=== PATIENT | male | born 1965 | race Caucasian/White ===

== ENCOUNTER 2022-01-20 00:42 | Emergency (ER) | payer OTHER ==
[~2022-01-20] VITALS: Ht 180.3 cm; Wt 97.5 kg
--- NOTE | 2022-01-20 00:45 | NUR ---
BIBSELF C/O LEFT HAND PAIN/ SWELLING. PT A/OX3. TOLERATING R/A WELL WITH NO RESP DISRESS OR SOB. SAFETY MEASURES IN PLACE.
--- NOTE | 2022-01-20 01:31 | NUR ---
STITCHING MACHINE FEEDER OR OFFBEARER AT PT'S BEDSIDE
--- NOTE | 2022-01-20 01:42 | NUR ---
ROLL FORMING MACHINE OPERATOR AT PT'S BEDSIDE
[2022-01-20 01:47] LABS: BASOPHILS % (AUTO) 0.5 % (0.0-2.0); EOSINOPHILS % (AUTO) 0.7 % (0.0-6.0); HEMATOCRIT 46 % (39-51); HEMOGLOBIN 15.5 g/dL (13.5-17.5); LYMPHOCYTES # (AUTO) 1.6 K/uL (0.8-4.8); LYMPHOCYTES % (AUTO) 19.7 % (20.0-44.0); MEAN CORPUSCULAR HGB CONC 34 g/dl (31.0-36.0); MEAN CORPUSCULAR VOLUME 95 fL (80-96); MONOCYTES # (AUTO) 0.7 K/uL (0.1-1.30); MONOCYTES % (AUTO) 8.7 % (2.0-12.0); NEUTROPHILS # (AUTO) 5.7 K/uL (1.8-8.9); NEUTROPHILS % (AUTO) 70.4 % (43.0-81.0); PLATELET COUNT (AUTO) 175 K/uL (150-450); WHITE BLOOD COUNT (AUTO) 8.2 K/uL (4.3-11.0)
[2022-01-20 01:53] LABS: CALCIUM, SERUM 8.8 mg/dL (8.5-10.1); CARBON DIOXIDE 29 mmol/L (21-32); CHLORIDE 103 mmol/L (98-107); CREATININE 1.1 mg/dL (0.6-1.3); GLUCOSE 90 mg/dL (74-106); POTASSIUM 3.7 mmol/L (3.5-5.1); SODIUM SERUM 138 mmol/L (136-145); UREA NITROGEN, BLOOD 24 mg/dL (7-18)
[2022-01-20 01:57] LABS: C-REACTIVE PROTEIN < 0.2 mg/dL (0.0-0.9)
[2022-01-20] MEDS ORDERED: LIDOCAINE HCL/MPF 1% 30 ML VIAL IJ ONE (02:57)
--- NOTE | 2022-01-20 03:50 | NUR ---
Patient discharged to home in stable condition. Written and verbal after care instructions given. Patient verbalizes understanding of instruction. pt ambulatory with a steady gait
[2022-01-20 03:51] VITALS: BP 129/74
== END 2022-01-20 03:51 | disposition home or self-care (01) ==
LOC: ER 01:06
DX: M65.352 Trigger finger, left little finger (principal); M79.645 Pain in left finger(s); Z88.0 Allergy status to penicillin; Z88.8 Allergy status to other drugs, medicaments and biological substances; Z60.2 Problems related to living alone
CPT/HCPCS: 99284; 73130; 85025; 80048; 85652; 36415; 86140; J3490

== ENCOUNTER 2024-02-04 08:07 | Emergency (ER) | payer OTHER ==
[~2024-02-04] VITALS: Ht 177.8 cm; Wt 80.7 kg
[2024-02-04 08:59] LABS: BASOPHILS % (AUTO) 0.6 % (0.0-2.0); EOSINOPHILS % (AUTO) 0.8 % (0.0-6.0); HEMATOCRIT 49 % (39-51); HEMOGLOBIN 16.2 g/dL (13.5-17.5); LYMPHOCYTES # (AUTO) 1.7 K/uL (0.8-4.8); MEAN CORPUSCULAR HEMOGLOBIN 32 PG (26.0-33.0); MEAN CORPUSCULAR HGB CONC 33 g/dl (31.0-36.0); MEAN CORPUSCULAR VOLUME 98 fL (80-96); MONOCYTES # (AUTO) 0.6 K/uL (0.1-1.30); MONOCYTES % (AUTO) 10.6 % (2.0-12.0); NEUTROPHILS # (AUTO) 3.4 K/uL (1.8-8.9); PLATELET COUNT (AUTO) 168 K/uL (150-450); RED BLOOD CELL COUNT(AUTO) 5.03 MIL/uL (4.5-6.0); RED CELL DISTRIBUTION WIDTH 13.5 % (11.5-15.0); WHITE BLOOD COUNT (AUTO) 5.8 K/uL (4.3-11.0)
[2024-02-04 09:09] LABS: CALCIUM, SERUM 9.3 mg/dL (8.5-10.1); CREATININE 1.3 mg/dL (0.6-1.3); POTASSIUM 3.8 mmol/L (3.5-5.1)
[2024-02-04 09:14] LABS: ALBUMIN 3.6 g/dL (3.4-5.0); BILIRUBIN,DIRECT 0.1 mg/dL (0.0-0.2); BILIRUBIN,TOTAL 0.5 mg/dL (0.2-1.0)
[2024-02-04 10:00] VITALS: BP 140/88; TEMP 98; O2SAT 99
== END 2024-02-04 10:14 | disposition home or self-care (01) ==
LOC: ER 08:17
DX: M54.6 Pain in thoracic spine (principal); I10 Essential (primary) hypertension; E03.9 Hypothyroidism, unspecified; Z86.711 Personal history of pulmonary embolism; Z88.0 Allergy status to penicillin; Z88.2 Allergy status to sulfonamides; Z60.2 Problems related to living alone
CPT/HCPCS: 36415; 80048-TC; 80076-TC; 83690-TC; 85025-TC